=== PATIENT | male | born 1945 | race Caucasian/White ===

== ENCOUNTER 2019-04-24 10:18 | Inpatient (IN) | payer MEDICARE ==
[~2019-04-24] VITALS: Ht 177.8 cm; Wt 104.3 kg
[~2019-04-24 10:18] MED LIST: BYETTA5 MCG/0.02 SQ; DEPO-TESTO200 MG/1 M; GLIMEPIRIDE4 MG PO; METFORMIN HCL500 MG PO; METOPROLOL SUCC25 MG PO; PLAVIX75 MG PO; RAMIPRIL2.5 MG PO; SIMVASTATIN20 MG PO
[2019-04-24] MEDS ORDERED: ASPIRIN81 MG PO (10:39)
[2019-04-24 10:47] LABS: BASOPHILS % 0.2 % (0.0-1.0); EOSINOPHILS # (AUTO) 0.1 (0.0-0.4); EOSINOPHILS % 1.3 % (0.0-6.0); HEMOGLOBIN 13.7 g/dL (14.0-18.0); LYMPHOCYTES # (AUTO) 2.1 (1.0-3.2); LYMPHOCYTES % 23.5 % (18.0-39.1); MEAN CORPUSCULAR HEMOGLOBIN 33.4 pg (28-32); MEAN CORPUSCULAR HGB CONC 33.4 g/dL (31-35); MONOCYTES # (AUTO) 0.6 (0.2-0.8); MONOCYTES % 7.1 % (4.4-11.3); NEUTROPHILS % 67.6 % (38.7-80.0); PLATELET COUNT 207 x10e3/uL (140-360); RED CELL DISTRIBUTION WIDTH 12.6 % (11.7-14.4)
[2019-04-24 10:54] LABS: INR 0.87; PROTHROMBIN TIME 12.3 seconds (11.9-14.5)
[2019-04-24 10:55] LABS: PARTIAL THROMBOPLASTIN TIME 24.7 seconds (23.8-35.5)
[2019-04-24 11:03] LABS: ALANINE AMINOTRANSFERASE 17 IU/L (0-55); ALBUMIN 3.5 g/dL (3.5-5.0); ALBUMIN/GLOBULIN RATIO 1.2 (0.8-2.0); ALKALINE PHOSPHATASE 51 IU/L (40-150); BLOOD UREA NITROGEN 16 mg/dL (7-26); BUN/CREATININE RATIO 18 (6-25); CALCIUM 9.8 mg/dL (8.4-10.2); CARBON DIOXIDE 30 mmol/L (22-29); CHLORIDE 103 mmol/L (98-107); CREATINE KINASE 97 IU/L (30-200); CREATININE, SERUM 0.91 mg/dL (0.72-1.25); EST GLOMERULAR FILTRATION RATE > 60 ML/MIN (60-); GLUCOSE 118 mg/dL (74-118); LIPASE 29 U/L (8-78); SODIUM 140 mmol/L (136-145)
[2019-04-24 11:12] LABS: CLARITY,URINE CLEAR (CLEAR); COLOR,URINE YELLOW (YELLOW)
[2019-04-24 11:13] LABS: BILIRUBIN,URINE NEGATIVE (NEGATIVE); KETONES,URINE NEGATIVE (NEGATIVE); LEUKOCYTE ESTERASE ,URINE NEGATIVE (NEGATIVE); NITRITE,URINE NEGATIVE (NEGATIVE); PROTEIN,URINE DIPSTICK NEGATIVE (NEGATIVE); URINE UROBILINOGEN 0.2 mg/dL (0.2 - 1)
[2019-04-24 11:37] LABS: BACTERIA,URINE RARE /HPF; CALCIUM OXALATE CRYSTALS,UR FEW (FEW); EPITHELIAL CELLS,URINE RARE /LPF; RBC,URINE 0-5 /HPF (0-5); WBC,URINE (MAN) 0-5 /HPF (0-5)
--- NOTE | 2019-04-24 12:29 | Diagnostic Imaging Report ---
EXAM: CT Abdomen and Pelvis WITH intravenous contrast INDICATION: Abdominal pain COMPARISON: None. TECHNIQUE: Abdomen and pelvis were scanned utilizing a multidetector helical scanner from the lung base to the pubic symphysis after administration of IV contrast. Coronal and sagittal reformations were obtained. Routine protocol was performed. Scan was performed during portal venous phase. IV CONTRAST: 100mL of Isovue 370 ORAL CONTRAST: Water RADIATION DOSE: Total DLP: 654.7 mGy*cm Dose modulation, iterative reconstruction, and/or weight based adjustment of the mA/kV was utilized to reduce the radiation dose to as low as reasonably achievable. FINDINGS: LOWER THORAX: No lung base consolidation. Coronary artery atherosclerotic calcifications. HEPATOBILIARY: 1.2 cm left hepatic cyst. 1.2 cm right hepatic segment 6 hypodensity, also likely a cyst. No other focal liver lesions. No biliary ductal dilation. Unremarkable gallbladder. SPLEEN: No splenomegaly. PANCREAS: No focal masses or ductal dilatation. ADRENALS: Mild thickening of the left adrenal gland without discrete focal nodule. No right adrenal nodule. KIDNEYS/URETERS: Cluster of nonobstructive renal calculi at the right lower pole measures up to 10 mm. No hydronephrosis. No left renal calculi. PELVIC ORGANS/BLADDER: Prostatomegaly to 5.3 cm With coarse internal calcifications. PERITONEUM / RETROPERITONEUM: No free air or fluid. LYMPH NODES: No lymphadenopathy. VESSELS: Scattered atherosclerotic calcifications of the nonaneurysmal abdominal aorta and major branches. GI TRACT: Mildly dilated loops of small bowel throughout the midline and left abdomen measuring up to 3.5 cm maximum diameter with multiple air-fluid levels. No definite transition point is identified. BONES AND SOFT TISSUES: No acute osseous injury. No suspicious lytic or blastic lesions. IMPRESSION: Small bowel obstruction with loops of dilated small bowel measuring up to 3.5 cm maximum diameter. No definite transition point identified. Right lower pole nonobstructive renal calculi measure up to 10 mm. Atherosclerotic arterial calcifications including of the coronary arteries. Signed by: Fermin Robles MD on 04/24/2019 12:26 PM
--- NOTE | 2019-04-24 12:30 | Diagnostic Imaging Report ---
EXAMINATION: CHEST SINGLE (PORTABLE) INDICATION: Abdominal pain COMPARISON: None FINDINGS: LINES/TUBES:None LUNGS:The lungs are well-inflated. No focal consolidation or pulmonary edema. PLEURA:No pleural effusion or pneumothorax. MEDIASTINUM:The cardiomediastinal silhouette appears normal in size and shape. BONES/SOFT TISSUES:No acute osseous injury. ABDOMEN:No free air under the diaphragm. IMPRESSION: No focal pneumonia or pulmonary edema. Signed by: Fermin Robles MD on 04/24/2019 12:27 PM
[2019-04-24] MEDS ORDERED: MORPHINE SULFATE 2 MG/ML SYR 1ML IV PRN (12:45)
[2019-04-24] MEDS ORDERED: ONDANSETRON HCL INJ 2MG/ML 2ML 2 MG/ML VIAL IV PRN (12:45)
[2019-04-24] MEDS ORDERED: MORPHINE SULFATE INJ 4 MG/ML INJ 1ML IV PRN (13:00)
--- NOTE | 2019-04-24 13:02 | NUR ---
PATIENT TO ROOM 9
[2019-04-24] MEDS: SODIUM CHLORIDE 0.9% 1000ML 1,000 ML IV SCH (13:50)
[2019-04-24] MEDS: FAMOTIDINE 20 MG/2 ML VIAL IV SCH (13:55)
[2019-04-24] MEDS ORDERED: SODIUM CHLORIDE 0.9% 50ML 50 ML ONE (16:51)
[2019-04-24] MEDS ORDERED: IOPAMIDOL 370 MG/ML 200 ML INFUS..BTL INJ ONE (16:51)
--- NOTE | 2019-04-24 17:00 | NUR ---
Patient able to ate dinner with good appetite. Ate whole dinner serving with no complaint of abdominal pain.
[2019-04-24] MEDS: METOPROLOL SUCCINATE 25 MG TAB XL PO SCH (17:55)
[2019-04-24 20:00] VITALS: BP 136/69
--- NOTE | 2019-04-24 20:10 | NUR ---
PATIENT RECEIVED FROM ER. PATIENT RESTING IN BED, AAOX3. RESP EVEN AND UNLABORED. NO ACUTE DISTRESS NOTED. DENIES OF ANY PAIN OR DISCOMFORT AT THIS TIME. ORIENTED TO ROOM. CALL LIGHT WITHIN REACH. INSTRUCT TO CALL FOR ASSISTANCE. BED LOW/LOCKED. CONTINUE TO MONITOR CLOSELY
[2019-04-24 21:00] VITALS: BP 136/69
[2019-04-24] MEDS ORDERED: SIMVASTATIN 20 MG TAB PO SCH (21:00)
[2019-04-24 21:07] LABS: CREATINE KINASE MB 2.9 ng/mL (0-5.0)
--- NOTE | 2019-04-24 21:07 | History and Physical ---
PRIMARY CARE PHYSICIAN: Dr. Miller at [facility]. CHIEF COMPLAINT: Diffuse abdominal pain. HISTORY OF PRESENT ILLNESS: This is a 73-year-old male with past medical history of hypertension, high cholesterol, CAD, presented to the ER with complaints of abdominal pain that started last night. He reports the pain is diffuse and was constant. He denies any nausea, vomiting, diarrhea, chest pain, shortness of breath, palpitations, fever, chills. He reports having a bowel movement this morning, which was normal. So he presented to the ER for further evaluation. PAST MEDICAL HISTORY: 1. Hypertension. 2. High cholesterol. 3. CAD. PAST SURGICAL HISTORY: Appendectomy as a child and right knee surgery. FAMILY MEDICAL HISTORY: Mother is obese and had hypertension and heart problems. He does not know of his biological father medical problems. SOCIAL HISTORY: He denies any illicit drug use. He quit smoking in 2003 and drinks alcohol occasionally. ALLERGIES: NO KNOWN ALLERGIES. REVIEW OF SYSTEMS: GENERAL: Fatigue. HEENT: No head trauma. LUNGS: No shortness of breath or cough. CARDIOVASCULAR: No chest pain or palpitations. GI: Abdominal pain and bloated. NEURO: No dizziness. MUSCULOSKELETAL: Moves all extremities. SKIN: No rash. PHYSICAL EXAMINATION: VITAL SIGNS: Temperature 97.7, pulse is 54, respirations 19, blood pressure 131/70, and pulse ox 99% on room air. GENERAL: No acute distress. HEENT: Normocephalic and atraumatic. NECK: Supple and midline. LUNGS: Clear to auscultation. CARDIOVASCULAR: Regular rate and rhythm. GI: Soft and very mild tenderness. Active bowel sounds. NEUROLOGIC: Alert, awake, and oriented x3. MUSCULOSKELETAL: Moves all extremities. SKIN: Dry and intact. PSYCH: Calm. LABORATORY DATA: WBC 8.96, hemoglobin 13.7, hematocrit 41.0, and platelets 207. Sodium is 140, potassium is 4.0, carbon dioxide is 30, BUN is 16, creatinine is 0.91, and estimated GFR is greater than 60. AST 18, ALT 17, creatine kinase 97, troponin 0.012, lipase 29, and albumin 3.7. PT 12.3, INR 0.87, and APTT 24.7. Urine clear with no leukocytes or wbc's. IMAGING: Chest x-ray, no focal pneumonia or pulmonary edema. CT of the abdomen and pelvis shows small bowel obstruction with loops of dilated small bowel measuring up to 3.5 cm right lower lobe nonobstructive renal stone and arthrosclerotic arterial calcification of the coronary arteries. IMPRESSION: 1. Abdominal pain due to small bowel obstruction. CT noted. Abdominal pain is improving now, so we will start on clear liquids. Pain management as needed with morphine. We will do a KUB in the morning to see resolution. He is passing gas and had a BM this morning. 2. Hypertension. We will resume home medication. 3. High cholesterol. We will resume statin. 4. Coronary artery disease. Resume aspirin and statin. 5. Deep vein thrombosis prophylaxis. SCDs. PLAN: We will continue on clear liquids, we will repeat KUB tomorrow morning and we will discharge if KUB is unremarkable and tolerating diet. Dictated by LYNDSEY Cagle Esperanza Peterson MD MY/MODL /[id number]
[2019-04-25] VITALS: BP 130/69
[2019-04-25] MEDS: SODIUM CHLORIDE 0.9% 1000ML 1,000 ML IV SCH ×3 (00:28→12:43)
[2019-04-25 04:00] VITALS: BP 121/61
[2019-04-25 05:24] LABS: BASOPHILS % 0.2 % (0.0-1.0); EOSINOPHILS # (AUTO) 0.3 (0.0-0.4); EOSINOPHILS % 4.3 % (0.0-6.0); HEMATOCRIT 37.1 % (38.2-49.6); HEMOGLOBIN 12.4 g/dL (14.0-18.0); LYMPHOCYTES # (AUTO) 1.9 (1.0-3.2); LYMPHOCYTES % 29.8 % (18.0-39.1); MEAN CORPUSCULAR HEMOGLOBIN 33.6 pg (28-32); MEAN CORPUSCULAR HGB CONC 33.4 g/dL (31-35); MEAN CORPUSCULAR VOLUME 100.5 fL (81-99); MONOCYTES # (AUTO) 0.7 (0.2-0.8); MONOCYTES % 10.3 % (4.4-11.3); NEUTROPHILS # (AUTO) 3.6 (2.1-6.9); NEUTROPHILS % 54.9 % (38.7-80.0); PLATELET COUNT 167 x10e3/uL (140-360); RED BLOOD COUNT 3.69 x10e6/uL (4.3-5.7); RED CELL DISTRIBUTION WIDTH 12.7 % (11.7-14.4)
[2019-04-25 05:48] LABS: ANION GAP 9.3 mmol/L (8-16); BLOOD UREA NITROGEN 10 mg/dL (7-26); BUN/CREATININE RATIO 12 (6-25); CALCIUM 8.3 mg/dL (8.4-10.2); CARBON DIOXIDE 29 mmol/L (22-29); CHLORIDE 108 mmol/L (98-107); CREATININE, SERUM 0.85 mg/dL (0.72-1.25); EST GLOMERULAR FILTRATION RATE > 60 ML/MIN (60-); GLUCOSE 97 mg/dL (74-118); POTASSIUM 4.3 mmol/L (3.5-5.1); SODIUM 142 mmol/L (136-145)
[2019-04-25 06:09] LABS: CREATINE KINASE MB 1.8 ng/mL (0-5.0)
--- NOTE | 2019-04-25 07:00 | NUR ---
BEDSIDE SHIFT REPORT RECEIVED FROM THE FRIT MAKER RN. EDUCATED PT ABOUT FALL PRECAUTIONS. CALL LIGHT WITH IN EASY REACH. INSTRUCTED PT TO USE CALL LIGHT FOR ALL THE NEEDS. PT VERBALIZED UNDERSTANDING. BED IS LOW AND LOCKED. SIDE RAILS X2. PT DENIES NEEDS AT THIS TIME.
[2019-04-25 08:03] VITALS: BP 114/59
[2019-04-25 08:51] VITALS: BP 114/59
[2019-04-25] MEDS: METOPROLOL SUCCINATE 25 MG TAB XL PO SCH (09:00)
[2019-04-25] MEDS ORDERED: CLOPIDOGREL BISULFATE 75 MG TAB PO SCH (09:00)
[2019-04-25] MEDS ORDERED: RAMIPRIL 2.5 MG CAP PO SCH (09:00)
[2019-04-25] MEDS ORDERED: ASPIRIN 81 MG CHEW TAB PO SCH (09:00)
[2019-04-25] MEDS: FAMOTIDINE 20 MG/2 ML VIAL IV SCH (09:26)
--- NOTE | 2019-04-25 10:00 | NUR ---
EKG COMPLETED. PT HAS SINUS KARL WITH FIRST DEGREE BLOCK. INFORMED THE SAME TO BOSTON MORALES. HOLD METOPROLOL PER THE SHIRT IRONER SUPERVISOR.
--- NOTE | 2019-04-25 10:15 | NUR ---
PT OFF UNIT FOR KUB IN SAFE CONDITION.
--- NOTE | 2019-04-25 10:31 | NUR ---
PT BACK TO UNIT AFTER KUB
--- NOTE | 2019-04-25 10:59 | Diagnostic Imaging Report ---
EXAM: ABDOMEN-1VIEW (KUB) DATE: 04/25/2019 8:00 AM INDICATION: Small bowel obstruction COMPARISON: CT abdomen/pelvis from 04/24/2019 FINDINGS: Moderately dilated air-filled loops of small bowel identified within the upper and mid abdomen measuring up to 4.7 cm in caliber compatible patient's history of small bowel obstruction. No intraperitoneal free air is appreciated on this supine view examination. 1 cm right renal calculus identified, as noted on the prior CT examination. No other abnormal abdominal calcification is appreciated. No acute osseous abnormality identified. IMPRESSION: Dilated air-filled loops small bowel identified compatible with patient's history of small bowel obstruction. 1 cm renal calculus. Signed by: Dr. Yves Petty MD on 04/25/2019 10:55 AM
[2019-04-25 11:30] VITALS: BP 123/67
[2019-04-25 13:07] LABS: CREATINE KINASE MB 1.4 ng/mL (0-5.0)
--- NOTE | 2019-04-25 13:25 | NUR ---
PT TOLERATED THE LUNCH WELL. NO C/O PAIN. D/C PT PER BOSTON MORALES.
--- NOTE | 2019-04-25 13:30 | NUR ---
PT DISCHARGED HOME SAFELY WITH FAMILY. PT ESCORTED TO THE PRIVATE AUTO AT THE FRONT ENTRANCE. BOTH IV REMOVED. TIP INTACT. DRESSING APPLIED. PT DENIED FURTHER NEEDS.
--- NOTE | 2019-04-25 15:34 | Discharge Summary ---
PRIMARY CARE PHYSICIAN: Dr. Miller at [facility]. CHIEF COMPLAINT: Diffuse abdominal pain due to small bowel obstruction. CONSULTANTS: None. FINAL DISCHARGE DIAGNOSES: 1. Abdominal pain due to small bowel obstruction. 2. Hypertension. 3. High cholesterol. 4. Coronary artery disease. PROCEDURES: None. HISTORY: Per HPI. HOSPITAL COURSE: This is a 73-year-old male with past medical history of hypertension, high cholesterol, and CAD, presented with complaints of abdominal pain that started overnight. Upon arrival to the ER, abdominal pain was already improving some. Imaging showed CT abdomen and pelvis with contrast showed small bowel obstruction with loops of dilated small bowel measuring up to 3.5 cm and none obstructive renal stones also. He denied any dysuria, hematuria, nausea, vomiting, abdominal pain, chest pain. He was monitored on clear liquid diet overnight. KUB was done this morning, which has not improved that much. But his abdominal pain is resolved 0/10. Tolerated diet. We will discharge home on soft diet to follow up with his PCP in 1 week. PHYSICAL EXAMINATION: VITAL SIGNS: Temperature 96.1, pulse is 52, respirations 16, blood pressure is 123/67, pulse ox 96% on room air. GENERAL: No acute distress. HEENT: Normocephalic, atraumatic. NECK: Supple. LUNGS: Clear to auscultation. CARDIOVASCULAR: Regular rate and rhythm, sinus connie. GI: Soft and nontender. NEUROLOGIC: Alert, awake, and oriented x3. MUSCULOSKELETAL: Moves all extremities. SKIN: Dry. PSYCH: Calm. CONDITION AT DISCHARGE: Improved and stable. DISCHARGE MEDICATIONS: Resume home medications. FOLLOWUP: Follow up with PCP in 1 to 2 weeks. TIME SPENT: Total time of discharge is 32 minutes. Dictated by LYNDSEY Cagle Esperanza Peterson MD MY/MODL /[id number] cc: Irma Miller MD
--- OUTSIDE RECORDS SUMMARY | 2019-04-28 12:50 | XMS REPORT ---
Author Author [facility] Address Unknown Phone Unavailable Care Team Providers Care Senior Data Warehouse Developer Name Role Phone Madeline CROFT Unavailable Unavailable Problems This patient has no known problems. Allergies, Adverse Reactions, Alerts This patient has no known allergies or adverse reactions. Medications This patient has no known medications. Results Test Description Test Time Test Comments Text Results Atomic Results Result Comments ABDOMEN-1VIEW ([facility]) 2019-04-25 10:53:00 [place] [id number] Patient Name: DANNA ALICEA MR #: [id number] : 1945 Age/Sex: 73/M Req #: [id number] [facility] Physician: PHYLICIA CROFT MD Ordered by: BOSTON PETERSON CLIENT SERVICE ASSOCIATE Report #: [id number] Location: MED/SURG2 Room/Bed: [facility] Procedure: [id number] DX/ABDOMEN-1VIEW ([facility]) Exam Date: Exam Time: REPORT STATUS: Signed EXAM: ABDOMEN-1VIEW ([facility]) DATE: 04/25/2019 8:00 AM ARI CATION: Small bowel obstruction COMPARISON: CT abdomen/pelvis from 04/24/2019 FINDINGS: Moderately dilated air-filled loops of small bowel identified within the upper and mid abdomen measuring up to 4.7 cm in caliber compatible patient's history of small bowel obstruction. No intraperitoneal free air is appreciated on this supine view examination. 1 cm right renal calculus identified, as noted on the prior CT examination. No other abnormal abdominal calcification is appreciated. No acute osseous abnormality identified. IMPRESSION: Dilated air-filled loops small bowel identified compatible with patient's history of small bowel obstruction. 1 cm renal calculus. Signed by: Dr. Yves Petty MD on 04/25/2019 10:55 AM Dictated By: YVES PETTY MD 1055 Transcribed By: WANG on 04/25/19 1055 COPY TO: BOSTON PETERSON NP CHEST SINGLE (PORTABLE) 2019-04-24 12:26:00 [place] [address] Patient Name: DANNA ALICEA MR #: [id number] : 1945 Age/Sex: 73/M Req #: [id number] Adm Physician: Ordered by: WILNER MACIAS CLIENT SERVICE ASSOCIATE Report #: [id number] Location: ER Room/Bed: Procedure: [id number] DX/CHEST SINGLE (PORTABLE) Exam Date: 04/24/19 Exam Time: 1150 REPORT STATUS: Signed EXAMINATION: CHEST SINGLE (PORTABLE) INDIC ATION: Abdominal pain COMPARISON: None FINDINGS: LINES/TUBES:None LUNGS:The lungs are well-inflated. No focal consolidation or pulmonary edema. PLEURA:No pleural effusion or pneumothorax. MEDIASTINUM:The cardiomediastinal silhouette appears normal in size and shape. BONES/SOFT TISSUES:No acute osseous injury. ABDOMEN:No free air under the diaphragm. IMPRESSION: No focal pneumonia or pulmonary edema. Signed by: Adri Small MD on 04/24/2019 12:27 PM Dictated By: ADRI SMALL MD 1227 Transcribed By: WANG on 04/24/197 COPY TO: WILNER MACIAS NP CT ABDOMEN/PELVIS W 2019-04-24 12:17:00 [facility] [address] [address] Patient Name: DANNA ALICEA MR #: [id number] : 1945 Age/Sex: 73/M Req #: [id number] Adm Physician: Ordered by: WILNER MACIAS NP Report #: [id number] Location: ER Room/Bed: Procedure: [id number] CT/CT ABDOMEN/PELVIS W Exam Date: 04/24/19 Exam Time: 1132 REPORT STATUS: Signed EXAM: CT Abdomen and Pelvis WITH intravenous contrast INDICATION: Abdominal pain COMPARISON: None. TECHNIQUE: Abdomen and pelvis were scanned utilizing a multidetector helical scanner from the lung base to the pubic symphysis after administration of IV contrast. Coronal and sagittal reformations were obtained. Routine protocol was performed. Scan was performed during portal venous phase. IV CONTRAST: 100mL of Isovue 370 ORAL CONTRAST: Water RADIATION DOSE: Total DLP: 654.7 mGy*cm Dose modulation, iterative reconstruction, and/or weight based adjustment of the mA/kV was utilized to reduce the radiation dose to as low as reasonably achievable. FINDINGS: LOWER THORAX: No lung base consolidation. Coronary artery atherosclerotic calcifications. HEPATOBILIARY: 1.2 cm left hepatic cyst. 1.2 cm right hepatic segment 6 hypodensity, also likely a cyst. No other focal liver lesions. No biliary ductal dilation. Unremarkable gallbladder. SPLEEN: No splenomegaly. PANCREAS: No focal masses or ductal dilatation. ADRENALS: Mild thickening of the left adrenal gland without discrete focal nodule. No right adrenal nodule. KIDNEYS/URETERS: Cluster of nonobstructive renal calculi at the right lower pole measures up to 10 mm. No hydronephrosis. No left renal calculi. PELVIC ORGANS/BLADDER: Prostatomegaly to 5.3 cm With coarse internal calcifications. PERITONEUM / RETROPERITONEUM: No free air or fluid. LYMPH NODES: No lymphadenopathy. VESSELS: Scattered atherosclerotic calcifications of the nonaneurysmal abdominal aorta and major branches. GI TRACT: Mildly dilated loops of small bowel throughout the midline and left abdomen measuring up to 3.5 cm maximum diameter with multiple air-fluid levels. No definite transition point is identified. BONES AND SOFT TISSUES: No acute osseous injury. No suspicious lytic or blastic lesions. IMPRESSION: Small bowel obstruction with loops of dilated small bowel measuring up to 3.5 cm maximum diameter. No definite transition point identified. Right lower pole nonobstructive renal calculi measure up to 10 mm. Atherosclerotic arterial calcifications including of the coronary arteries. Signed by: Adri Small MD on 04/24/2019 12:26 PM Dictated By: ADRI SMALL MD 1226 Transcribed By: WANG on 04/24/19 1226 COPY TO: WILNER LORD NP
== END 2019-04-25 13:41 | disposition home or self-care (01) | DRG 390 ==
LOC: ER 10:18 → ERHOLD 12:43 → MED/SURG2 20:00
PROVIDERS: ADMIT Internal Medicine; ATTEND Internal Medicine
DX: K56.609 Unspecified intestinal obstruction, unspecified as to partial versus complete obstruction (principal); I25.10 Atherosclerotic heart disease of native coronary artery without angina pectoris; E78.00 Pure hypercholesterolemia, unspecified; I10 Essential (primary) hypertension
CPT/HCPCS: 36415; 71045; 74018; 74177; 80048; 80053; 81001; 82550; 82553; 82948; 83690; 84484; 85025; 85610; 85730; 93005; 99284; J7030; Q9967

== ENCOUNTER 2019-06-13 06:17 | Emergency (ER) | payer MEDICARE ==
[~2019-06-13] VITALS: Ht 177.8 cm; Wt 104.3 kg
[~2019-06-13 06:17] MED LIST changes: +ASPIRIN81 MG PO
[2019-06-13] MEDS ORDERED: ASPIRIN 81 MG CHEW TAB PO ONE (07:00)
[2019-06-13 07:22] LABS: HEMOGLOBIN 13.8 g/dL (14.0-18.0); RED BLOOD COUNT 4.07 x10e6/uL (4.3-5.7)
[2019-06-13 07:23] LABS: BASOPHILS % 0.3 % (0.0-1.0); EOSINOPHILS % 2.6 % (0.0-6.0); HEMATOCRIT 40.8 % (38.2-49.6); LYMPHOCYTES % 26.1 % (18.0-39.1); MEAN CORPUSCULAR HEMOGLOBIN 33.9 pg (28-32); MEAN CORPUSCULAR HGB CONC 33.7 g/dL (31-35); MEAN CORPUSCULAR VOLUME 100.5 fL (81-99); MONOCYTES % 10.4 % (4.4-11.3); NEUTROPHILS % 60.2 % (38.7-80.0); PLATELET COUNT 230 x10e3/uL (140-360); RED CELL DISTRIBUTION WIDTH 13.4 % (11.7-14.4)
--- NOTE | 2019-06-13 07:26 | Diagnostic Imaging Report ---
EXAMINATION: CHEST SINGLE (NOT PORTABLE) INDICATION: Chest pain. COMPARISON: 04/24/2019. FINDINGS: TUBES and LINES: None. LUNGS: Mild bibasilar subsegmental atelectasis. There is no evidence of pneumonia or pulmonary edema. PLEURA: No pleural effusion or pneumothorax. HEART AND MEDIASTINUM: The cardiomediastinal silhouette is unremarkable. BONES AND SOFT TISSUES: No acute osseous lesion. Soft tissues are unremarkable. UPPER ABDOMEN: No free air under the diaphragm. IMPRESSION: No acute thoracic abnormality. Signed by: Dr. Óscar Grove M.D. on 06/13/2019 7:24 AM
[2019-06-13 07:36] LABS: BILIRUBIN,URINE NEGATIVE (NEGATIVE); CLARITY,URINE CLEAR (CLEAR); COLOR,URINE YELLOW (YELLOW); KETONES,URINE NEGATIVE (NEGATIVE); LEUKOCYTE ESTERASE ,URINE NEGATIVE (NEGATIVE); NITRITE,URINE NEGATIVE (NEGATIVE); PROTEIN,URINE DIPSTICK NEGATIVE (NEGATIVE); URINE UROBILINOGEN 0.2 mg/dL (0.2 - 1)
[2019-06-13 07:41] LABS: BACTERIA,URINE FEW /HPF; EPITHELIAL CELLS,URINE MODERATE /LPF; RBC,URINE 0-5 /HPF (0-5)
[2019-06-13] MEDS ORDERED: METOPROLOL TARTRATE 25 MG TAB PO NR (08:00)
[2019-06-13 08:12] LABS: BLOOD UREA NITROGEN 16 mg/dL (7-26); BUN/CREATININE RATIO 15 (6-25); CARBON DIOXIDE 26 mmol/L (22-29); CHLORIDE 104 mmol/L (98-107); CREATININE, SERUM 1.09 mg/dL (0.72-1.25); EST GLOMERULAR FILTRATION RATE > 60 ML/MIN (60-); GLUCOSE 169 mg/dL (74-118); SODIUM 142 mmol/L (136-145)
[2019-06-13 08:13] LABS: ALANINE AMINOTRANSFERASE 22 IU/L (0-55); ALBUMIN 3.9 g/dL (3.5-5.0); ALBUMIN/GLOBULIN RATIO 1.3 (0.8-2.0); ALKALINE PHOSPHATASE 58 IU/L (40-150); CALCIUM 9.6 mg/dL (8.4-10.2); CREATINE KINASE 110 IU/L (30-200)
[2019-06-13 08:56] LABS: INR 0.82; PARTIAL THROMBOPLASTIN TIME 25.9 seconds (23.8-35.5); PROTHROMBIN TIME 11.4 seconds (11.9-14.5)
[2019-06-13 09:13] LABS: EOSINOPHILS # (AUTO) 0.2 (0.0-0.4); LYMPHOCYTES # (AUTO) 1.9 (1.0-3.2); MONOCYTES # (AUTO) 0.8 (0.2-0.8); NEUTROPHILS # (AUTO) 4.3 (2.1-6.9)
[2019-06-13] MEDS ORDERED: POTASSIUM CHLORIDE 20 MEQ TAB CR PO ONE (10:07)
[2019-06-13] MEDS ORDERED: POTASSIUM CHLORIDE 20 MEQ TAB CR PO NR (10:15)
== END 2019-06-13 10:06 | disposition home or self-care (01) ==
LOC: ER 06:17
DX: R00.0 Tachycardia, unspecified (principal); E87.6 Hypokalemia; R60.9 Edema, unspecified; I10 Essential (primary) hypertension; I25.10 Atherosclerotic heart disease of native coronary artery without angina pectoris; I50.9 Heart failure, unspecified; E78.5 Hyperlipidemia, unspecified; I25.2 Old myocardial infarction
CPT/HCPCS: 36415; 71045; 80053; 81001; 82550; 82553; 83880; 84484; 85025; 85610; 85730; 93005; 99284

== ENCOUNTER 2019-09-07 12:49 | Observation (INO) | payer MEDICARE ==
[~2019-09-07] VITALS: Ht 177.8 cm; Wt 95.9 kg
[2019-09-07 13:17] LABS: BASOPHILS % 0.5 % (0.0-1.0); EOSINOPHILS # (AUTO) 0.2 (0.0-0.4); EOSINOPHILS % 3.3 % (0.0-6.0); HEMATOCRIT 41.3 % (38.2-49.6); HEMOGLOBIN 13.9 g/dL (14.0-18.0); LYMPHOCYTES % 32.5 % (18.0-39.1); MEAN CORPUSCULAR HEMOGLOBIN 34.3 pg (28-32); MEAN CORPUSCULAR HGB CONC 33.7 g/dL (31-35); MONOCYTES # (AUTO) 0.6 (0.2-0.8); MONOCYTES % 9.9 % (4.4-11.3); NEUTROPHILS # (AUTO) 3.3 (2.1-6.9); NEUTROPHILS % 53.2 % (38.7-80.0); PLATELET COUNT 218 x10e3/uL (140-360); RED BLOOD COUNT 4.05 x10e6/uL (4.3-5.7); RED CELL DISTRIBUTION WIDTH 13.2 % (11.7-14.4)
[2019-09-07 13:36] LABS: ALANINE AMINOTRANSFERASE 14 IU/L (0-55); ALBUMIN 3.8 g/dL (3.5-5.0); ALBUMIN/GLOBULIN RATIO 1.2 (0.8-2.0); ALKALINE PHOSPHATASE 51 IU/L (40-150); BLOOD UREA NITROGEN 15 mg/dL (7-26); BUN/CREATININE RATIO 18 (6-25); CALCIUM 9.3 mg/dL (8.4-10.2); CARBON DIOXIDE 29 mmol/L (22-29); CHLORIDE 105 mmol/L (98-107); CREATINE KINASE 82 IU/L (30-200); CREATININE, SERUM 0.84 mg/dL (0.72-1.25); EST GLOMERULAR FILTRATION RATE > 60 ML/MIN (60-); GLUCOSE 123 mg/dL (74-118); SODIUM 141 mmol/L (136-145)
--- NOTE | 2019-09-07 15:42 | Diagnostic Imaging Report ---
X-ray chest AP portable Comparison: 06/13/2019 History: Muscle pain Findings: Cardiomediastinal silhouette and central airways unremarkable except for a prominent aorta. No pleural effusion. No pneumothorax. Lung finley are unremarkable. Visualized skeleton, but abdomen and extrathoracic soft tissues unremarkable. Impression: No acute disease seen on this exam. Signed by: Brodie Vyas MD on 09/07/2019 3:39 PM
[2019-09-07] MEDS ORDERED: ASPIRIN 81 MG CHEW TAB PO ONE (16:15)
--- NOTE | 2019-09-07 18:00 | NUR ---
pt alert resp even and unlabored at this time no distress noted pt able to make needs known, pt was oriented to room and call light, bed in lowest position, bed rails up x2, pt dressing to back clean and intact no c/pain at this time.
[2019-09-07 20:00] VITALS: BP 131/73
--- NOTE | 2019-09-07 20:25 | NUR ---
PATIENT IS AOX4, NO SIGNS OF OF RESPIRATORY DISTRESS NOTED. PATIENT VOICES NO CHEST PAIN AT THIS TIME. BED IS IN LOWEST POSITION, BOTH SIDE RAILS ARE UP, CALL LIGHT IS WITHIN EASY REACH, WILL CONTINUE TO MONITOR.
[2019-09-07 20:30] VITALS: BP 131/73
[2019-09-08] VITALS: BP 129/71
[2019-09-08 01:30] VITALS: BP 131/73
[2019-09-08] MEDS ORDERED: FINASTERIDE5 MG PO (02:02)
[2019-09-08] MEDS ORDERED: MULTIVITAMINS1 EAC6 PO (02:02)
[2019-09-08] MEDS ORDERED: FLOMAX0.4 MG PO (02:02)
[2019-09-08 04:00] VITALS: BP 133/61
[2019-09-08 05:55] LABS: BASOPHILS % 0.3 % (0.0-1.0); EOSINOPHILS # (AUTO) 0.2 (0.0-0.4); EOSINOPHILS % 3.1 % (0.0-6.0); HEMOGLOBIN 12.8 g/dL (14.0-18.0); LYMPHOCYTES % 32.5 % (18.0-39.1); MEAN CORPUSCULAR HGB CONC 33.7 g/dL (31-35); MEAN CORPUSCULAR VOLUME 101.1 fL (81-99); MONOCYTES # (AUTO) 0.7 (0.2-0.8); MONOCYTES % 10.6 % (4.4-11.3); NEUTROPHILS # (AUTO) 3.3 (2.1-6.9); NEUTROPHILS % 53.3 % (38.7-80.0); PLATELET COUNT 199 x10e3/uL (140-360); RED BLOOD COUNT 3.76 x10e6/uL (4.3-5.7); RED CELL DISTRIBUTION WIDTH 12.9 % (11.7-14.4)
--- NOTE | 2019-09-08 07:05 | NUR ---
BEDSIDE SHIFT REPORT RECEIVED FROM PM NURSE, PT AWAKE, ALERT, AMBULATING TO BATHROOM WITHOUT DIFFICULTY, NO SIGNS OF DISTRESS. WILL CONTINUE TO MONITOR.
[2019-09-08 07:36] LABS: CREATINE KINASE 74 IU/L (30-200)
[2019-09-08 08:00] VITALS: BP 137/69
[2019-09-08 08:29] VITALS: BP 133/61
--- NOTE | 2019-09-08 08:35 | NUR ---
spoke with ANDREW Hernandez for Dr. Byrne and informed him of consult.
--- NOTE | 2019-09-08 11:39 | Discharge Summary ---
PRIMARY CARE DOCTOR: Dr. Maricarmen Reynolds. FINAL DIAGNOSIS: Atypical chest pain. No evidence of acute myocardial infarction. SECONDARY DIAGNOSES: 1. Coronary artery disease with distant stent placement. 2. Hypertension. CONSULTANTS: Dr. Byrne. PROCEDURES/STUDIES PERFORMED: None. HISTORY: Per H and P. HOSPITAL COURSE: The patient's history is very atypical, in fact he was more concerned about getting a COVID-19 test done. The patient's repeat troponins are negative, therefore no acute myocardial infarction. I have suggested for him to follow up with his [facility] security patrol officer to see if he still needs to take Plavix in addition to aspirin. Currently, the patient is stable for going home, which he is waiting for Dr. Byrne be to see him. CONDITION ON DISCHARGE: Stable. DISCHARGE MEDICATIONS: Please see medication reconciliation form. Yiching MD CLOVER Aguirre/GILES /[id number]
[2019-09-08 11:52] VITALS: BP 141/77
--- NOTE | 2019-09-08 12:55 | NUR ---
DR FREED SAW PT AT BEDSIDE; STATES PT IS CLEAR FOR DISCHARGE. WILL HAVE PT FOLLOW UP WITH HIM IN 3 WEEKS.
[2019-09-08] MEDS ORDERED: METOPROLOL SUCCINATE 25 MG TAB XL PO SCH (17:00)
--- NOTE | 2019-09-08 20:31 | Consultation ---
DATE OF CONSULTATION: REASON FOR CONSULTATION: Chest pain, concern for COVID-19. HISTORY OF PRESENT ILLNESS: The patient is a very pleasant 74-year-old white gentleman with history of hypertension. Yesterday while he was sitting, he started to have chest pain, which was getting progressively worse if he took a deep breath or if he moved his upper part of the chest. He was watching something on TV and [employer] saying that muscle pain could be positive for COVID, so he became concerned. There was no fever, no chills, no cough. He came to emergency room. In the emergency room, chest x-ray was negative. He was evaluated, is being admitted. PAST MEDICAL HISTORY: Hypertension. PAST SURGICAL HISTORY: Denies. ALLERGIES: NKA. SOCIAL HISTORY: Negative. REVIEW OF SYSTEMS: At present time; HEENT: Negative. PULMONARY: Negative. CARDIAC: Negative. : Negative. GI: Negative. MUSCULOSKELETAL: Pain is negative. LABORATORY DATA: White count 6.12, hemoglobin 12.18, hematocrit of 38. His sodium 141, potassium 4.1, creatinine 0.84. Chest x-ray was negative. There was no fever since admission. PHYSICAL EXAMINATION: GENERAL: He is currently alert, oriented, does not seem to be in acute distress. VITAL SIGNS: Stable, currently afebrile. HEENT: He is not icteric. NECK: Supple. CHEST: Clear. HEART: S1, S2. No S3, S4, or murmur. ABDOMEN: Soft. Positive bowel sounds. EXTREMITIES: No edema. SKIN: No rash. IMPRESSION: Muscular pain, maybe pleurisy. Clinically, seems to be stable. There is no need to worry about coronavirus disease 2019 at the present time. I gave him my business card to see me back in 3 weeks. Should he have fever or cough or any of symptoms, to call me. Further recommendations follow. MD WINDY Baugh/GILES /[id number]
[2019-09-08] MEDS ORDERED: SIMVASTATIN 20 MG TAB PO SCH (21:00)
[2019-09-08] MEDS ORDERED: TAMSULOSIN HCL 0.4 MG CAP PO SCH (21:00)
[2019-09-09] MEDS ORDERED: CLOPIDOGREL BISULFATE 75 MG TAB PO SCH (09:00)
[2019-09-09] MEDS ORDERED: MULTIVITAMINS/MINERALS TAB PO SCH (09:00)
[2019-09-09] MEDS ORDERED: FINASTERIDE 5 MG TAB PO SCH (09:00)
[2019-09-09] MEDS ORDERED: RAMIPRIL 2.5 MG CAP PO SCH (09:00)
[2019-09-09] MEDS ORDERED: ASPIRIN 81 MG CHEW TAB PO SCH (09:00)
== END 2019-09-08 13:40 | disposition home or self-care (01) ==
LOC: ER 12:49 → ERHOLD 16:07 → MED/SURG 17:32
PROVIDERS: ADMIT Internal Medicine; ATTEND Internal Medicine
DX: R07.89 Other chest pain (principal); I10 Essential (primary) hypertension; I25.10 Atherosclerotic heart disease of native coronary artery without angina pectoris; Z95.5 Presence of coronary angioplasty implant and graft
CPT/HCPCS: 36415 ×2; 71045; 80053; 82550 ×2; 82553 ×2; 84484 ×2; 85025 ×2; 93005; 99284; G0378 ×2

== ENCOUNTER 2020-03-10 13:47 | Emergency (ER) | payer MEDICARE ==
[~2020-03-10] VITALS: Ht 177.8 cm; Wt 95.7 kg
[~2020-03-10 13:47] MED LIST changes: +FINASTERIDE5 MG PO; +FLOMAX0.4 MG PO; +MULTIVITAMINS1 EAC6 PO
[2020-03-10] MEDS ORDERED: SODIUM CHLORIDE 0.9% 1000ML 1,000 ML IV STA (14:08)
[2020-03-10 14:38] LABS: BASOPHILS % 0.3 % (0.0-1.0); EOSINOPHILS # (AUTO) 0.1 (0.0-0.4); EOSINOPHILS % 1.9 % (0.0-6.0); HEMATOCRIT 40.7 % (38.2-49.6); HEMOGLOBIN 13.5 g/dL (14.0-18.0); LYMPHOCYTES # (AUTO) 1.7 (1.0-3.2); MEAN CORPUSCULAR HEMOGLOBIN 33.9 pg (28-32); MEAN CORPUSCULAR HGB CONC 33.2 g/dL (31-35); MEAN CORPUSCULAR VOLUME 102.3 fL (81-99); MONOCYTES # (AUTO) 0.6 (0.2-0.8); MONOCYTES % 9.9 % (4.4-11.3); NEUTROPHILS # (AUTO) 3.4 (2.1-6.9); NEUTROPHILS % 58.6 % (38.7-80.0); PLATELET COUNT 212 x10e3/uL (140-360); RED BLOOD COUNT 3.98 x10e6/uL (4.3-5.7); RED CELL DISTRIBUTION WIDTH 12.9 % (11.7-14.4)
[2020-03-10 14:50] LABS: INR 0.94; PROTHROMBIN TIME 13.1 seconds (11.9-14.5)
[2020-03-10 14:51] LABS: PARTIAL THROMBOPLASTIN TIME 24.1 seconds (23.8-35.5)
[2020-03-10 14:55] LABS: ALANINE AMINOTRANSFERASE 19 IU/L (0-55); ALBUMIN 3.9 g/dL (3.5-5.0); ALBUMIN/GLOBULIN RATIO 1.3 (0.8-2.0); ALKALINE PHOSPHATASE 45 IU/L (40-150); BLOOD UREA NITROGEN 15 mg/dL (7-26); BUN/CREATININE RATIO 15 (6-25); CALCIUM 8.9 mg/dL (8.4-10.2); CARBON DIOXIDE 27 mmol/L (22-29); CHLORIDE 106 mmol/L (98-107); CLARITY,URINE CLOUDY (CLEAR); COLOR,URINE YELLOW (YELLOW); CREATININE, SERUM 0.97 mg/dL (0.72-1.25); EST GLOMERULAR FILTRATION RATE > 60 ML/MIN (60-); GLUCOSE 123 mg/dL (74-118); LEUKOCYTE ESTERASE ,URINE NEGATIVE (NEGATIVE); NITRITE,URINE NEGATIVE (NEGATIVE); SODIUM 140 mmol/L (136-145)
[2020-03-10 14:56] LABS: BILIRUBIN,URINE NEGATIVE (NEGATIVE); KETONES,URINE NEGATIVE (NEGATIVE); PROTEIN,URINE DIPSTICK NEGATIVE (NEGATIVE); URINE UROBILINOGEN 0.2 mg/dL (0.2 - 1)
[2020-03-10 15:12] LABS: BACTERIA,URINE MANY /HPF; CALCIUM OXALATE CRYSTALS,UR MANY (FEW); EPITHELIAL CELLS,URINE FEW /LPF; MUCUS,URINE MANY (RARE); RBC,URINE 21-50 /HPF (0-5); WBC,URINE (MAN) 21-50 /HPF (0-5)
[2020-03-10] MEDS ORDERED: CEFTRIAXONE SOD 1 GM/NS 50 ML 50 ML IV ONE (15:45)
== END 2020-03-10 18:05 | disposition home or self-care (01) ==
LOC: ER 14:11
DX: M54.5 Low back pain (principal); Z87.442 Personal history of urinary calculi; I10 Essential (primary) hypertension; E78.5 Hyperlipidemia, unspecified; I25.2 Old myocardial infarction; Z95.5 Presence of coronary angioplasty implant and graft
CPT/HCPCS: 36415; 74176; 80053; 81001; 85025; 85610; 85730; 87086; 87186; 99284; J0696; J7030

== ENCOUNTER 2020-06-04 17:22 | Emergency (ER) | payer MEDICARE ==
[~2020-06-04] VITALS: Ht 177.8 cm; Wt 95.7 kg
== END 2020-06-04 20:53 | disposition home or self-care (01) ==
LOC: ER 18:12
DX: H54.62 Unqualified visual loss, left eye, normal vision right eye (principal); Z11.52 Encounter for screening for COVID-19; I10 Essential (primary) hypertension; E78.5 Hyperlipidemia, unspecified; I25.2 Old myocardial infarction
CPT/HCPCS: 99282; U0002

== ENCOUNTER 2021-06-23 12:24 | Emergency (ER) | payer MEDICARE ==
[~2021-06-23] VITALS: Ht 177.8 cm; Wt 95.7 kg
[2021-06-23 13:59] LABS: BASOPHILS % 0.5 % (0.0-1.0); EOSINOPHILS # (AUTO) 0.1 (0.0-0.4); EOSINOPHILS % 1.9 % (0.0-6.0); HEMATOCRIT 43.7 % (38.2-49.6); HEMOGLOBIN 14.3 g/dL (14.0-18.0); LYMPHOCYTES # (AUTO) 1.6 (1.0-3.2); LYMPHOCYTES % 24.8 % (18.0-39.1); MEAN CORPUSCULAR HGB CONC 32.7 g/dL (31-35); MEAN CORPUSCULAR VOLUME 103.8 fL (81-99); MONOCYTES # (AUTO) 0.7 (0.2-0.8); MONOCYTES % 10.7 % (4.4-11.3); NEUTROPHILS # (AUTO) 3.9 (2.1-6.9); NEUTROPHILS % 61.6 % (38.7-80.0); PLATELET COUNT 210 x10e3/uL (140-360); RED BLOOD COUNT 4.21 x10e6/uL (4.3-5.7); RED CELL DISTRIBUTION WIDTH 13.2 % (11.7-14.4)
[2021-06-23 14:12] LABS: INR 0.89; PROTHROMBIN TIME 12.7 seconds (11.9-14.5)
[2021-06-23 14:21] LABS: ALBUMIN 3.8 g/dL (3.5-5.0); ALBUMIN/GLOBULIN RATIO 1.1 (0.8-2.0); CALCIUM 9.1 mg/dL (8.4-10.2); CREATININE, SERUM 1.17 mg/dL (0.72-1.25)
[2021-06-23] MEDS ORDERED: SODIUM CHLORIDE 0.9% 50ML 50 ML ONE (14:43)
[2021-06-23] MEDS ORDERED: IOPAMIDOL 370 MG/ML 200 ML INFUS..BTL INJ ONE (14:43)
== END 2021-06-23 19:08 | disposition home or self-care (01) ==
LOC: ER 12:28
DX: K62.5 Hemorrhage of anus and rectum (principal); K57.30 Diverticulosis of large intestine without perforation or abscess without bleeding; N20.0 Calculus of kidney
CPT/HCPCS: 36415; 74177; 80053; 85025; 85610; 86850; 86900; 99284; Q9967

== ENCOUNTER 2021-09-02 10:43 | Emergency (ER) | payer MEDICARE ==
[~2021-09-02] VITALS: Ht 177.8 cm; Wt 95.7 kg
[2021-09-02 11:11] LABS: BASOPHILS % 0.1 % (0.0-1.0); HEMATOCRIT 36.7 % (38.2-49.6); HEMOGLOBIN 12.5 g/dL (14.0-18.0); LYMPHOCYTES # (AUTO) 0.4 (1.0-3.2); LYMPHOCYTES % 3.1 % (18.0-39.1); MEAN CORPUSCULAR HEMOGLOBIN 34.3 pg (28-32); MEAN CORPUSCULAR HGB CONC 34.1 g/dL (31-35); MEAN CORPUSCULAR VOLUME 100.8 fL (81-99); MONOCYTES # (AUTO) 1.6 (0.2-0.8); MONOCYTES % 11.6 % (4.4-11.3); NEUTROPHILS # (AUTO) 11.9 (2.1-6.9); NEUTROPHILS % 84.6 % (38.7-80.0); PLATELET COUNT 171 x10e3/uL (140-360); RED BLOOD COUNT 3.64 x10e6/uL (4.3-5.7); RED CELL DISTRIBUTION WIDTH 12.9 % (11.7-14.4)
[2021-09-02 11:45] LABS: ALBUMIN 2.9 g/dL (3.5-5.0); ALBUMIN/GLOBULIN RATIO 0.7 (0.8-2.0); ANION GAP 13.2 mmol/L (8-16); CALCIUM 8.5 mg/dL (8.4-10.2); CREATININE, SERUM 1.12 mg/dL (0.72-1.25); POTASSIUM 3.2 mmol/L (3.5-5.1)
[2021-09-02 12:07] LABS: CLARITY,URINE CLEAR (CLEAR); COLOR,URINE YELLOW (YELLOW); LEUKOCYTE ESTERASE ,URINE NEGATIVE (NEGATIVE); NITRITE,URINE NEGATIVE (NEGATIVE)
[2021-09-02 12:08] LABS: KETONES,URINE 2+ (NEGATIVE); PROTEIN,URINE DIPSTICK 2+ (NEGATIVE); URINE UROBILINOGEN 0.2 mg/dL (0.2 - 1)
[2021-09-02 12:19] LABS: BACTERIA,URINE MODERATE /HPF; EPITHELIAL CELLS,URINE MODERATE /LPF
[2021-09-02 12:21] LABS: MUCUS,URINE MODERATE (RARE)
[2021-09-02] MEDS ORDERED: CEPHALEXIN500 MG PO (13:34)
[2021-09-02 14:04] VITALS: BP 151/80
== END 2021-09-02 14:07 | disposition home or self-care (01) ==
LOC: ER 10:46
DX: A41.9 Sepsis, unspecified organism (principal); N39.0 Urinary tract infection, site not specified; I10 Essential (primary) hypertension; E78.5 Hyperlipidemia, unspecified; Z20.822 Contact with and (suspected) exposure to COVID-19; I25.2 Old myocardial infarction; Z95.5 Presence of coronary angioplasty implant and graft
CPT/HCPCS: 36415; 70450; 71045; 80053; 81001; 83605; 83880; 84484; 85025; 87040; 93005; 99284; J0696; U0002

== ENCOUNTER 2022-05-10 07:01 | Inpatient (IN) | payer MEDICARE ==
[~2022-05-10] VITALS: Ht 177.8 cm; Wt 94.9 kg
[~2022-05-10 07:01] MED LIST changes: +CEPHALEXIN500 MG PO
[2022-05-10 07:50] LABS: BASOPHILS % 0.2 % (0.0-1.0); EOSINOPHILS # (AUTO) 0.1 (0.0-0.4); EOSINOPHILS % 1.4 % (0.0-6.0); HEMATOCRIT 40.9 % (38.2-49.6); HEMOGLOBIN 12.3 g/dL (14.0-18.0); LYMPHOCYTES # (AUTO) 0.9 (1.0-3.2); LYMPHOCYTES % 16.2 % (18.0-39.1); MEAN CORPUSCULAR HEMOGLOBIN 32.9 pg (28-32); MEAN CORPUSCULAR HGB CONC 30.1 g/dL (31-35); MEAN CORPUSCULAR VOLUME 109.4 fL (81-99); MONOCYTES # (AUTO) 0.7 (0.2-0.8); MONOCYTES % 11.4 % (4.4-11.3); NEUTROPHILS # (AUTO) 4.1 (2.1-6.9); NEUTROPHILS % 70.5 % (38.7-80.0); PLATELET COUNT 165 x10e3/uL (140-360); RED BLOOD COUNT 3.74 x10e6/uL (4.3-5.7); RED CELL DISTRIBUTION WIDTH 12.9 % (11.7-14.4)
[2022-05-10 07:57] LABS: PARTIAL THROMBOPLASTIN TIME 32.1 seconds (23.8-35.5); PROTHROMBIN TIME 13.4 seconds (11.9-14.5)
[2022-05-10 08:04] LABS: ALBUMIN 3.4 g/dL (3.5-5.0); ANION GAP 14.8 mmol/L (8-16); CALCIUM 8.6 mg/dL (8.4-10.2); CREATININE, SERUM 0.94 mg/dL (0.72-1.25); POTASSIUM 3.8 mmol/L (3.5-5.1)
[2022-05-10 08:11] LABS: CREATINE KINASE MB 1.4 ng/mL (0-5.0)
[2022-05-10 08:15] LABS: B-TYPE NATRIURETIC PEPTIDE2 96.3 pg/mL (0-100)
[2022-05-10] MEDS ORDERED: METHYLPREDNISOLONE SOD SUCC 125 MG/2ML VIAL IV ONE (08:15)
[2022-05-10] MEDS ORDERED: ALBUTEROL/IPRATROPIUM 3 ML NEB NEB ONE ×3 (08:15)
[2022-05-10 08:38] LABS: CLARITY,URINE CLOUDY (CLEAR); COLOR,URINE YELLOW (YELLOW); KETONES,URINE NEGATIVE (NEGATIVE); LEUKOCYTE ESTERASE ,URINE NEGATIVE (NEGATIVE); NITRITE,URINE NEGATIVE (NEGATIVE); PROTEIN,URINE DIPSTICK 2+ (NEGATIVE); URINE UROBILINOGEN 0.2 mg/dL (0.2 - 1)
[2022-05-10 08:58] LABS: BACTERIA,URINE FEW /HPF; EPITHELIAL CELLS,URINE RARE /LPF; WBC,URINE (MAN) 0-5 /HPF (0-5)
[2022-05-10] MEDS ORDERED: SODIUM CHLORIDE 0.9% 1000ML 1,000 ML IV SCH (10:15)
[2022-05-10] MEDS ORDERED: DEXTROSE 50% SYRINGE 50 ML IV PRN (10:30)
[2022-05-10] MEDS ORDERED: ONDANSETRON HCL INJ 2MG/ML 2ML 2 MG/ML VIAL IV PRN (10:30)
[2022-05-10] MEDS: SODIUM CHLORIDE 0.9% 1000ML 1,000 ML IV SCH ×2 (10:34→23:38)
[2022-05-10] MEDS: INSULIN REGULAR, HUMAN 100 UNIT/1 ML SQ SCH ×3 (11:30→21:20)
[2022-05-10 11:38] VITALS: BP 144/66
[2022-05-10 15:21] VITALS: BP 154/76
[2022-05-10 15:30] VITALS: BP 154/76
[2022-05-10 18:28] VITALS: BP 154/76
[2022-05-10] MEDS: ALBUTEROL/IPRATROPIUM 3 ML NEB NEB PRN (19:10)
[2022-05-10 19:15] VITALS: BP 141/71
[2022-05-10 20:00] VITALS: BP 141/71
[2022-05-10] MEDS: TAMSULOSIN HCL 0.4 MG CAP PO SCH (21:12)
[2022-05-10] MEDS: SIMVASTATIN 20 MG TAB PO SCH (21:12)
[2022-05-11] VITALS (7 sets, daily range): BP systolic 129–166; BP diastolic 65–84
[2022-05-11 06:10] LABS: BASOPHILS % 0.2 % (0.0-1.0); EOSINOPHILS % 0.2 % (0.0-6.0); HEMATOCRIT 37.1 % (38.2-49.6); LYMPHOCYTES # (AUTO) 0.8 (1.0-3.2); LYMPHOCYTES % 12.5 % (18.0-39.1); MEAN CORPUSCULAR HEMOGLOBIN 33.9 pg (28-32); MEAN CORPUSCULAR HGB CONC 32.3 g/dL (31-35); MEAN CORPUSCULAR VOLUME 104.8 fL (81-99); MONOCYTES # (AUTO) 0.6 (0.2-0.8); MONOCYTES % 9.3 % (4.4-11.3); NEUTROPHILS % 77.2 % (38.7-80.0); PLATELET COUNT 158 x10e3/uL (140-360); RED BLOOD COUNT 3.54 x10e6/uL (4.3-5.7); RED CELL DISTRIBUTION WIDTH 13.2 % (11.7-14.4)
[2022-05-11 06:37] LABS: ALBUMIN 3.2 g/dL (3.5-5.0); ANION GAP 14.5 mmol/L (8-16); CALCIUM 8.4 mg/dL (8.4-10.2); CREATININE, SERUM 0.8 mg/dL (0.72-1.25); POTASSIUM 3.5 mmol/L (3.5-5.1)
[2022-05-11] MEDS: INSULIN REGULAR, HUMAN 100 UNIT/1 ML SQ SCH ×4 (07:30→21:00)
[2022-05-11] MEDS: ALBUTEROL/IPRATROPIUM 3 ML NEB NEB PRN ×2 (07:53→19:05)
[2022-05-11] MEDS: FINASTERIDE 5 MG TAB PO SCH (08:47)
[2022-05-11] MEDS: ASPIRIN 81 MG CHEW TAB PO SCH (08:47)
[2022-05-11] MEDS: ENOXAPARIN SOD INJ 40 MG/0.4 ML SYR SC SCH (08:47)
[2022-05-11] MEDS ORDERED: ONDANSETRON HCL 4 MG ORAL DISINTEGRATING TAB PO PRN (13:15)
[2022-05-11] MEDS: BENZONATATE 100 MG CAP PO PRN (18:24)
[2022-05-11] MEDS: ACETYLCYSTEINE 200 MG/ML 4ML VIAL INH SCH (19:05)
[2022-05-11] MEDS: SIMVASTATIN 20 MG TAB PO SCH (22:27)
[2022-05-11] MEDS: TAMSULOSIN HCL 0.4 MG CAP PO SCH (22:27)
[2022-05-12] VITALS (7 sets, daily range): BP systolic 126–177; BP diastolic 64–103
[2022-05-12] MEDS: ALBUTEROL/IPRATROPIUM 3 ML NEB NEB PRN (06:41)
[2022-05-12] MEDS: ACETYLCYSTEINE 200 MG/ML 4ML VIAL INH SCH ×2 (06:41→19:30)
[2022-05-12 06:44] LABS: BASOPHILS % 0.3 % (0.0-1.0); HEMATOCRIT 42.5 % (38.2-49.6); HEMOGLOBIN 13.3 g/dL (14.0-18.0); LYMPHOCYTES # (AUTO) 0.5 (1.0-3.2); LYMPHOCYTES % 8.3 % (18.0-39.1); MEAN CORPUSCULAR HEMOGLOBIN 33.4 pg (28-32); MEAN CORPUSCULAR HGB CONC 31.3 g/dL (31-35); MEAN CORPUSCULAR VOLUME 106.8 fL (81-99); MONOCYTES # (AUTO) 0.3 (0.2-0.8); MONOCYTES % 5.4 % (4.4-11.3); NEUTROPHILS % 84.3 % (38.7-80.0); PLATELET COUNT 127 x10e3/uL (140-360); RED BLOOD COUNT 3.98 x10e6/uL (4.3-5.7); RED CELL DISTRIBUTION WIDTH 13.2 % (11.7-14.4)
[2022-05-12 07:07] LABS: ALBUMIN 2.9 g/dL (3.5-5.0); ALBUMIN/GLOBULIN RATIO 0.8 (0.8-2.0); ANION GAP 18.2 mmol/L (8-16); CALCIUM 8.2 mg/dL (8.4-10.2); CREATININE, SERUM 0.77 mg/dL (0.72-1.25); POTASSIUM 4.2 mmol/L (3.5-5.1)
[2022-05-12] MEDS: INSULIN REGULAR, HUMAN 100 UNIT/1 ML SQ SCH ×4 (07:30→23:17)
[2022-05-12] MEDS ORDERED: SODIUM CHLORIDE 0.9% 250ML 250 ML ONE (08:33)
[2022-05-12] MEDS: ASPIRIN 81 MG CHEW TAB PO SCH (08:49)
[2022-05-12] MEDS: FINASTERIDE 5 MG TAB PO SCH (08:50)
[2022-05-12] MEDS: ENOXAPARIN SOD INJ 40 MG/0.4 ML SYR SC SCH (08:50)
[2022-05-12] MEDS ORDERED: METHYLPREDNISOLONE SOD SUCC 125 MG/2ML VIAL IV ONE (14:00)
[2022-05-12] MEDS: ALBUTEROL/IPRATROPIUM 3 ML NEB NEB SCH (19:30)
[2022-05-12] MEDS ORDERED: ALPRAZOLAM 0.25 MG TAB PO PRN (20:30)
[2022-05-12] MEDS ORDERED: CLONIDINE HCL 0.1 MG TAB PO PRN (21:00)
[2022-05-12] MEDS: BENZONATATE 100 MG CAP PO PRN (22:53)
[2022-05-12] MEDS: TAMSULOSIN HCL 0.4 MG CAP PO SCH (22:53)
[2022-05-12] MEDS: SIMVASTATIN 20 MG TAB PO SCH (22:53)
[2022-05-13] VITALS (7 sets, daily range): BP systolic 125–145; BP diastolic 62–83
[2022-05-13] MEDS: ALBUTEROL/IPRATROPIUM 3 ML NEB NEB SCH ×4 (00:40→19:35)
[2022-05-13 06:23] LABS: BASOPHILS % 0.2 % (0.0-1.0); HEMATOCRIT 45.6 % (38.2-49.6); HEMOGLOBIN 13.7 g/dL (14.0-18.0); LYMPHOCYTES # (AUTO) 0.5 (1.0-3.2); LYMPHOCYTES % 11.6 % (18.0-39.1); MEAN CORPUSCULAR HEMOGLOBIN 33.4 pg (28-32); MEAN CORPUSCULAR VOLUME 111.2 fL (81-99); MONOCYTES # (AUTO) 0.3 (0.2-0.8); MONOCYTES % 6.5 % (4.4-11.3); NEUTROPHILS # (AUTO) 3.3 (2.1-6.9); NEUTROPHILS % 80.2 % (38.7-80.0); PLATELET COUNT 132 x10e3/uL (140-360)
[2022-05-13 06:26] LABS: ALBUMIN 2.7 g/dL (3.5-5.0); ALBUMIN/GLOBULIN RATIO 0.7 (0.8-2.0); ANION GAP 16.1 mmol/L (8-16); CALCIUM 8.6 mg/dL (8.4-10.2); CREATININE, SERUM 0.76 mg/dL (0.72-1.25); POTASSIUM 4.1 mmol/L (3.5-5.1)
[2022-05-13] MEDS: ACETYLCYSTEINE 200 MG/ML 4ML VIAL INH SCH ×2 (06:40→19:35)
[2022-05-13] MEDS: INSULIN REGULAR, HUMAN 100 UNIT/1 ML SQ SCH ×3 (07:30→16:30)
[2022-05-13] MEDS: BENZONATATE 100 MG CAP PO PRN (07:39)
[2022-05-13 08:50] LABS: PLATELET ESTIMATE SLIGHTLY DECREASED; PLATELET MORPHOLOGY COMMENT NORMAL; RBC MORPHOLOGY COMMENT NORMAL
[2022-05-13] MEDS: FINASTERIDE 5 MG TAB PO SCH (09:37)
[2022-05-13] MEDS: CLOPIDOGREL BISULFATE 75 MG TAB PO SCH (09:39)
[2022-05-13] MEDS: METOPROLOL SUCCINATE 25 MG TAB XL PO SCH (09:39)
[2022-05-13] MEDS: ASPIRIN 81 MG CHEW TAB PO SCH (09:39)
[2022-05-13] MEDS ORDERED: METHYLPREDNISOLONE SOD SUCC 125 MG/2ML VIAL IV ONE (10:30)
[2022-05-13] MEDS: FUROSEMIDE INJ 10 MG/ML 4 ML VIAL IV SCH (13:25)
[2022-05-13] MEDS: TAMSULOSIN HCL 0.4 MG CAP PO SCH (23:52)
[2022-05-13] MEDS: SIMVASTATIN 20 MG TAB PO SCH (23:58)
[2022-05-14] MEDS: INSULIN REGULAR, HUMAN 100 UNIT/1 ML SQ SCH ×5 (00:16→21:37)
[2022-05-14] MEDS: ALBUTEROL/IPRATROPIUM 3 ML NEB NEB SCH ×4 (02:35→19:00)
[2022-05-14 05:34] VITALS: BP 151/78
[2022-05-14 05:58] LABS: BASOPHILS % 0.2 % (0.0-1.0); HEMATOCRIT 42.4 % (38.2-49.6); HEMOGLOBIN 12.4 g/dL (14.0-18.0); LYMPHOCYTES # (AUTO) 0.6 (1.0-3.2); LYMPHOCYTES % 11.9 % (18.0-39.1); MEAN CORPUSCULAR HEMOGLOBIN 33.5 pg (28-32); MEAN CORPUSCULAR HGB CONC 29.2 g/dL (31-35); MEAN CORPUSCULAR VOLUME 114.6 fL (81-99); MONOCYTES # (AUTO) 0.4 (0.2-0.8); MONOCYTES % 8.5 % (4.4-11.3); NEUTROPHILS # (AUTO) 3.8 (2.1-6.9); NEUTROPHILS % 78.8 % (38.7-80.0); PLATELET COUNT 123 x10e3/uL (140-360); RED CELL DISTRIBUTION WIDTH 12.1 % (11.7-14.4)
[2022-05-14 06:27] LABS: ALBUMIN 2.6 g/dL (3.5-5.0); ALBUMIN/GLOBULIN RATIO 0.8 (0.8-2.0); ANION GAP 14.6 mmol/L (8-16); CALCIUM 8.6 mg/dL (8.4-10.2); CREATININE, SERUM 0.8 mg/dL (0.72-1.25); POTASSIUM 4.6 mmol/L (3.5-5.1)
[2022-05-14] MEDS: ACETYLCYSTEINE 200 MG/ML 4ML VIAL INH SCH ×2 (06:33→19:00)
[2022-05-14 07:03] LABS: PLATELET ESTIMATE ADEQUATE; PLATELET MORPHOLOGY COMMENT FEW LARGE; RBC MORPHOLOGY COMMENT ABNORMAL
[2022-05-14] MEDS ORDERED: SODIUM CHLORIDE 0.9% 250ML 250 ML ONE ×2 (08:11→21:53)
[2022-05-14 08:31] VITALS: BP 131/66
[2022-05-14] MEDS: FINASTERIDE 5 MG TAB PO SCH (08:46)
[2022-05-14] MEDS: ASPIRIN 81 MG CHEW TAB PO SCH (08:46)
[2022-05-14] MEDS: CLOPIDOGREL BISULFATE 75 MG TAB PO SCH (08:46)
[2022-05-14] MEDS: METOPROLOL SUCCINATE 25 MG TAB XL PO SCH (08:47)
[2022-05-14] MEDS: FUROSEMIDE INJ 10 MG/ML 4 ML VIAL IV SCH (08:48)
[2022-05-14 09:01] VITALS: BP 131/66
[2022-05-14] MEDS ORDERED: FAMOTIDINE20 MG PO (09:53)
[2022-05-14] MEDS ORDERED: OMEGA-31000 MG PO (09:53)
[2022-05-14] MEDS ORDERED: LEVOCETIRIZINE D5 MG PO (09:53)
[2022-05-14] MEDS ORDERED: DONEPEZIL HCL10 MG PO (09:53)
[2022-05-14] MEDS ORDERED: FLUTICASONE PRO16 GM INH (09:53)
[2022-05-14] MEDS ORDERED: SERTRALINE HCL100 MG PO (09:53)
[2022-05-14] MEDS ORDERED: AZELASTINE137 MCG/0. INH (09:53)
[2022-05-14] MEDS ORDERED: OMEPRAZOLE40 MG PO (09:53)
[2022-05-14] MEDS ORDERED: MUPIROCIN22 GM TOP (09:53)
[2022-05-14] MEDS ORDERED: FLOMAX0.4 MG PO (09:53)
[2022-05-14 12:01] VITALS: BP 136/72
[2022-05-14 16:07] VITALS: BP 128/65
[2022-05-14 21:24] VITALS: BP 143/61
[2022-05-14] MEDS: TAMSULOSIN HCL 0.4 MG CAP PO SCH (21:32)
[2022-05-14] MEDS: SIMVASTATIN 20 MG TAB PO SCH (21:32)
[2022-05-15] VITALS (7 sets, daily range): BP systolic 108–157; BP diastolic 64–84
[2022-05-15] MEDS: ALBUTEROL/IPRATROPIUM 3 ML NEB NEB SCH ×4 (01:15→20:04)
[2022-05-15 05:43] LABS: BASOPHILS % 0.2 % (0.0-1.0); EOSINOPHILS # (AUTO) 0.1 (0.0-0.4); EOSINOPHILS % 1.1 % (0.0-6.0); HEMATOCRIT 40.1 % (38.2-49.6); HEMOGLOBIN 11.9 g/dL (14.0-18.0); LYMPHOCYTES # (AUTO) 1.4 (1.0-3.2); LYMPHOCYTES % 24.3 % (18.0-39.1); MEAN CORPUSCULAR HEMOGLOBIN 32.6 pg (28-32); MEAN CORPUSCULAR HGB CONC 29.7 g/dL (31-35); MEAN CORPUSCULAR VOLUME 109.9 fL (81-99); MONOCYTES # (AUTO) 0.6 (0.2-0.8); MONOCYTES % 10.1 % (4.4-11.3); NEUTROPHILS # (AUTO) 3.5 (2.1-6.9); NEUTROPHILS % 63.4 % (38.7-80.0); PLATELET COUNT 168 x10e3/uL (140-360); RED BLOOD COUNT 3.65 x10e6/uL (4.3-5.7); RED CELL DISTRIBUTION WIDTH 11.9 % (11.7-14.4)
[2022-05-15 06:16] LABS: CALCIUM 8.4 mg/dL (8.4-10.2); CREATININE, SERUM 0.79 mg/dL (0.72-1.25); MAGNESIUM 1.8 MG/DL (1.3-2.1)
[2022-05-15] MEDS: ACETYLCYSTEINE 200 MG/ML 4ML VIAL INH SCH ×2 (06:24→20:00)
[2022-05-15 07:09] LABS: HYPOCHROMASIA SLIGHT; LYMPHOCYTES % (MANUAL) 29 % (19-48); MONOCYTES % (MANUAL) 10 % (3.4-9.0); NEUTROPHILS % (MANUAL) 60 % (40-74); PLATELET ESTIMATE ADEQUATE; PLATELET MORPHOLOGY COMMENT NORMAL; RBC MORPHOLOGY COMMENT ABNORMAL
[2022-05-15] MEDS ORDERED: POTASSIUM CHLORIDE 20 MEQ TAB CR PO ONE ×2 (08:30→11:00)
[2022-05-15] MEDS: CLOPIDOGREL BISULFATE 75 MG TAB PO SCH (08:47)
[2022-05-15] MEDS: FUROSEMIDE INJ 10 MG/ML 4 ML VIAL IV SCH (08:47)
[2022-05-15] MEDS: ASPIRIN 81 MG CHEW TAB PO SCH (08:47)
[2022-05-15] MEDS: FINASTERIDE 5 MG TAB PO SCH (08:47)
[2022-05-15] MEDS: METOPROLOL SUCCINATE 25 MG TAB XL PO SCH (08:48)
[2022-05-15] MEDS: INSULIN REGULAR, HUMAN 100 UNIT/1 ML SQ SCH ×4 (08:51→21:51)
[2022-05-15] MEDS ORDERED: ACETAZOLAMIDE SODIUM 500 MG/VIAL IV ONE (11:00)
[2022-05-15] MEDS: TAMSULOSIN HCL 0.4 MG CAP PO SCH (21:38)
[2022-05-15] MEDS: SIMVASTATIN 20 MG TAB PO SCH (21:39)
[2022-05-16] VITALS (8 sets, daily range): BP systolic 112–160; BP diastolic 57–82
[2022-05-16] MEDS: ALBUTEROL/IPRATROPIUM 3 ML NEB NEB SCH ×4 (01:30→20:15)
[2022-05-16 05:48] LABS: BASOPHILS % 0.2 % (0.0-1.0); EOSINOPHILS # (AUTO) 0.1 (0.0-0.4); EOSINOPHILS % 2.6 % (0.0-6.0); HEMATOCRIT 40.1 % (38.2-49.6); HEMOGLOBIN 12.6 g/dL (14.0-18.0); LYMPHOCYTES # (AUTO) 1.2 (1.0-3.2); LYMPHOCYTES % 23.7 % (18.0-39.1); MEAN CORPUSCULAR HEMOGLOBIN 33.1 pg (28-32); MEAN CORPUSCULAR HGB CONC 31.4 g/dL (31-35); MEAN CORPUSCULAR VOLUME 105.2 fL (81-99); MONOCYTES # (AUTO) 0.5 (0.2-0.8); NEUTROPHILS # (AUTO) 3.2 (2.1-6.9); NEUTROPHILS % 63.3 % (38.7-80.0); PLATELET COUNT 171 x10e3/uL (140-360); RED BLOOD COUNT 3.81 x10e6/uL (4.3-5.7); RED CELL DISTRIBUTION WIDTH 12.9 % (11.7-14.4)
[2022-05-16 06:21] LABS: ANION GAP 15.1 mmol/L (8-16); CALCIUM 8.5 mg/dL (8.4-10.2); CREATININE, SERUM 0.81 mg/dL (0.72-1.25); POTASSIUM 4.1 mmol/L (3.5-5.1)
[2022-05-16] MEDS: ACETYLCYSTEINE 200 MG/ML 4ML VIAL INH SCH ×2 (06:37→20:15)
[2022-05-16] MEDS: INSULIN REGULAR, HUMAN 100 UNIT/1 ML SQ SCH ×4 (07:30→20:46)
[2022-05-16] MEDS: METOPROLOL SUCCINATE 25 MG TAB XL PO SCH (09:00)
[2022-05-16] MEDS: ENOXAPARIN SOD INJ 40 MG/0.4 ML SYR SC SCH (09:17)
[2022-05-16] MEDS: ASPIRIN 81 MG CHEW TAB PO SCH (09:17)
[2022-05-16] MEDS: AZITHROMYCIN 250 MG TAB PO SCH (09:17)
[2022-05-16] MEDS: FUROSEMIDE INJ 10 MG/ML 4 ML VIAL IV SCH (09:17)
[2022-05-16] MEDS: CLOPIDOGREL BISULFATE 75 MG TAB PO SCH (09:17)
[2022-05-16] MEDS: FINASTERIDE 5 MG TAB PO SCH (09:17)
[2022-05-16] MEDS: NYSTATIN 15 GM POWDER UD BTL TOP SCH (09:19)
[2022-05-16] MEDS: TAMSULOSIN HCL 0.4 MG CAP PO SCH (20:47)
[2022-05-16] MEDS: SIMVASTATIN 20 MG TAB PO SCH (20:47)
[2022-05-16] MEDS ORDERED: ACETAMINOPHEN/CODEINE 300MG - 30MG TAB PO PRN (23:15)
[2022-05-17] VITALS (8 sets, daily range): BP systolic 107–148; BP diastolic 62–79
[2022-05-17] MEDS: ALBUTEROL/IPRATROPIUM 3 ML NEB NEB SCH ×6 (02:20→19:40)
[2022-05-17] MEDS: BENZONATATE 100 MG CAP PO PRN (04:43)
[2022-05-17] MEDS: ACETYLCYSTEINE 200 MG/ML 4ML VIAL INH SCH ×3 (07:00→19:40)
[2022-05-17] MEDS: INSULIN REGULAR, HUMAN 100 UNIT/1 ML SQ SCH ×4 (08:01→19:50)
[2022-05-17] MEDS: ASPIRIN 81 MG CHEW TAB PO SCH (08:52)
[2022-05-17] MEDS: FUROSEMIDE INJ 10 MG/ML 4 ML VIAL IV SCH (08:52)
[2022-05-17] MEDS: FINASTERIDE 5 MG TAB PO SCH (08:53)
[2022-05-17] MEDS: METOPROLOL SUCCINATE 25 MG TAB XL PO SCH (08:53)
[2022-05-17] MEDS: CLOPIDOGREL BISULFATE 75 MG TAB PO SCH (08:53)
[2022-05-17] MEDS: NYSTATIN 15 GM POWDER UD BTL TOP SCH ×3 (08:54→21:04)
[2022-05-17] MEDS: ENOXAPARIN SOD INJ 40 MG/0.4 ML SYR SC SCH (08:54)
[2022-05-17] MEDS: AZITHROMYCIN 250 MG TAB PO SCH (08:54)
[2022-05-17] MEDS ORDERED: ALPRAZOLAM 0.25 MG TAB PO PRN (15:30)
[2022-05-17] MEDS ORDERED: GUAIFENESIN 600 MG TAB PO PRN (15:30)
[2022-05-17] MEDS ORDERED: HYDROXYZINE HCL 10 MG TAB PO PRN (15:30)
[2022-05-17] MEDS: TAMSULOSIN HCL 0.4 MG CAP PO SCH (21:04)
[2022-05-17] MEDS: SIMVASTATIN 20 MG TAB PO SCH (21:04)
[2022-05-18] VITALS (8 sets, daily range): BP systolic 119–153; BP diastolic 55–95
[2022-05-18 06:04] LABS: BASOPHILS % 0.3 % (0.0-1.0); EOSINOPHILS # (AUTO) 0.3 (0.0-0.4); EOSINOPHILS % 5.2 % (0.0-6.0); HEMATOCRIT 40.2 % (38.2-49.6); HEMOGLOBIN 13.1 g/dL (14.0-18.0); LYMPHOCYTES # (AUTO) 1.7 (1.0-3.2); LYMPHOCYTES % 25.9 % (18.0-39.1); MEAN CORPUSCULAR HEMOGLOBIN 33.2 pg (28-32); MEAN CORPUSCULAR HGB CONC 32.6 g/dL (31-35); MEAN CORPUSCULAR VOLUME 101.8 fL (81-99); MONOCYTES # (AUTO) 0.5 (0.2-0.8); MONOCYTES % 8.2 % (4.4-11.3); NEUTROPHILS # (AUTO) 3.9 (2.1-6.9); NEUTROPHILS % 59.8 % (38.7-80.0); PLATELET COUNT 210 x10e3/uL (140-360); RED BLOOD COUNT 3.95 x10e6/uL (4.3-5.7); RED CELL DISTRIBUTION WIDTH 12.4 % (11.7-14.4)
[2022-05-18 06:35] LABS: ALBUMIN 2.8 g/dL (3.5-5.0); ALBUMIN/GLOBULIN RATIO 0.8 (0.8-2.0); ANION GAP 16.6 mmol/L (8-16); CALCIUM 8.7 mg/dL (8.4-10.2); CREATININE, SERUM 0.84 mg/dL (0.72-1.25); POTASSIUM 3.6 mmol/L (3.5-5.1)
[2022-05-18] MEDS: ALBUTEROL/IPRATROPIUM 3 ML NEB NEB SCH ×5 (06:40→23:15)
[2022-05-18] MEDS: ACETYLCYSTEINE 200 MG/ML 4ML VIAL INH SCH ×2 (06:45→19:35)
[2022-05-18] MEDS: INSULIN REGULAR, HUMAN 100 UNIT/1 ML SQ SCH ×4 (07:30→22:48)
[2022-05-18] MEDS: FINASTERIDE 5 MG TAB PO SCH (09:42)
[2022-05-18] MEDS: CLOPIDOGREL BISULFATE 75 MG TAB PO SCH (09:42)
[2022-05-18] MEDS: ASPIRIN 81 MG CHEW TAB PO SCH (09:42)
[2022-05-18] MEDS: FUROSEMIDE INJ 10 MG/ML 4 ML VIAL IV SCH (09:42)
[2022-05-18] MEDS: AZITHROMYCIN 250 MG TAB PO SCH (09:43)
[2022-05-18] MEDS: ENOXAPARIN SOD INJ 40 MG/0.4 ML SYR SC SCH (09:43)
[2022-05-18] MEDS: METOPROLOL SUCCINATE 25 MG TAB XL PO SCH (09:43)
[2022-05-18] MEDS: NYSTATIN 15 GM POWDER UD BTL TOP SCH ×3 (09:51→21:00)
[2022-05-18] MEDS: SIMVASTATIN 20 MG TAB PO SCH (21:00)
[2022-05-18] MEDS: TAMSULOSIN HCL 0.4 MG CAP PO SCH (21:00)
[2022-05-19] VITALS: BP 150/81
[2022-05-19] MEDS ORDERED: ZIPRASIDONE 20 MG VIAL IM PRN (03:00)
[2022-05-19 04:00] VITALS: BP 152/78
[2022-05-19] MEDS: ALBUTEROL/IPRATROPIUM 3 ML NEB NEB SCH ×2 (06:00→10:15)
[2022-05-19] MEDS: ACETYLCYSTEINE 200 MG/ML 4ML VIAL INH SCH (06:19)
[2022-05-19 07:52] VITALS: BP 140/80
[2022-05-19 08:05] VITALS: BP 140/80
[2022-05-19] MEDS: INSULIN REGULAR, HUMAN 100 UNIT/1 ML SQ SCH (09:41)
[2022-05-19] MEDS: ENOXAPARIN SOD INJ 40 MG/0.4 ML SYR SC SCH (09:47)
[2022-05-19] MEDS: AZITHROMYCIN 250 MG TAB PO SCH (09:47)
[2022-05-19] MEDS: FUROSEMIDE INJ 10 MG/ML 4 ML VIAL IV SCH (09:47)
[2022-05-19] MEDS: CLOPIDOGREL BISULFATE 75 MG TAB PO SCH (09:47)
[2022-05-19] MEDS: FINASTERIDE 5 MG TAB PO SCH (09:47)
[2022-05-19] MEDS: ASPIRIN 81 MG CHEW TAB PO SCH (09:47)
[2022-05-19] MEDS: METOPROLOL SUCCINATE 25 MG TAB XL PO SCH (09:48)
[2022-05-19] MEDS: NYSTATIN 15 GM POWDER UD BTL TOP SCH (09:48)
[2022-05-19] MEDS ORDERED: LEVOFLOXACIN250 MG PO (10:34)
[2022-05-19] MEDS ORDERED: LASIX20 MG PO (10:34)
[2022-05-19] MEDS ORDERED: NYAMYC15 GM TOP (10:34)
[2022-05-19 12:19] VITALS: BP 143/68
== END 2022-05-19 13:50 | disposition home or self-care (01) | DRG 190 ==
LOC: ER 07:10 → ERHOLD 10:17 → MED/SURG3 11:16
PROVIDERS: ADMIT Internal Medicine; ATTEND Internal Medicine
DX: J44.0 Chronic obstructive pulmonary disease with (acute) lower respiratory infection (principal); J18.9 Pneumonia, unspecified organism; I50.32 Chronic diastolic (congestive) heart failure; J44.1 Chronic obstructive pulmonary disease with (acute) exacerbation; N40.1 Benign prostatic hyperplasia with lower urinary tract symptoms; R33.8 Other retention of urine; I25.10 Atherosclerotic heart disease of native coronary artery without angina pectoris; Z95.5 Presence of coronary angioplasty implant and graft; I11.0 Hypertensive heart disease with heart failure; Z20.822 Contact with and (suspected) exposure to COVID-19; R21 Rash and other nonspecific skin eruption; E11.65 Type 2 diabetes mellitus with hyperglycemia
CPT/HCPCS: 36415; 71045; 71250; 74230; 80048; 80053; 81001; 82550; 82553; 82948; 83036; 83605; 83735; 83880; 84484; 85025; 85610; 85730; 87040; 87086; 93005; 93306; 94640; 94760; 94799; 96372; 99252; 99284; J0456; J0696; J1650; J1817; J1940; J2543; J2930; J7030; J7050

== ENCOUNTER 2022-10-18 02:17 | Emergency (ER) | payer MEDICARE ==
[~2022-10-18] VITALS: Ht 177.8 cm; Wt 94.8 kg
[~2022-10-18 02:17] MED LIST changes: +AZELASTINE137 MCG/0. INH; +DONEPEZIL HCL10 MG PO; +FAMOTIDINE20 MG PO; +FLUTICASONE PRO16 GM INH; +LASIX20 MG PO; +LEVOCETIRIZINE D5 MG PO; +LEVOFLOXACIN250 MG PO; +MUPIROCIN22 GM TOP; +NYAMYC15 GM TOP; +OMEGA-31000 MG PO; +OMEPRAZOLE40 MG PO; +SERTRALINE HCL100 MG PO
[2022-10-18 03:30] LABS: BASOPHILS % 0.3 % (0.0-1.0); EOSINOPHILS # (AUTO) 0.1 (0.0-0.4); HEMATOCRIT 38.5 % (38.2-49.6); HEMOGLOBIN 12.9 g/dL (14.0-18.0); LYMPHOCYTES # (AUTO) 1.4 (1.0-3.2); LYMPHOCYTES % 21.4 % (18.0-39.1); MEAN CORPUSCULAR HEMOGLOBIN 33.9 pg (28-32); MEAN CORPUSCULAR HGB CONC 33.5 g/dL (31-35); MEAN CORPUSCULAR VOLUME 101.3 fL (81-99); MONOCYTES # (AUTO) 0.6 (0.2-0.8); MONOCYTES % 9.1 % (4.4-11.3); NEUTROPHILS # (AUTO) 4.5 (2.1-6.9); NEUTROPHILS % 67.8 % (38.7-80.0); PLATELET COUNT 174 x10e3/uL (140-360); RED CELL DISTRIBUTION WIDTH 13.8 % (11.7-14.4)
[2022-10-18 03:40] LABS: CLARITY,URINE CLEAR (CLEAR); COLOR,URINE YELLOW (YELLOW); LEUKOCYTE ESTERASE ,URINE NEGATIVE (NEGATIVE); NITRITE,URINE NEGATIVE (NEGATIVE)
[2022-10-18 03:41] LABS: KETONES,URINE NEGATIVE (NEGATIVE); PROTEIN,URINE DIPSTICK 1+ (NEGATIVE); URINE UROBILINOGEN 0.2 mg/dL (0.2 - 1)
[2022-10-18 03:46] LABS: ALBUMIN 3.8 g/dL (3.5-5.0); ALBUMIN/GLOBULIN RATIO 1.2 (0.8-2.0); ANION GAP 12.9 mmol/L (8-16); CREATININE, SERUM 1.15 mg/dL (0.72-1.25)
[2022-10-18 03:48] LABS: POTASSIUM 2.9 mmol/L (3.5-5.1)
[2022-10-18] MEDS ORDERED: POTASSIUM CHLORIDE 20 MEQ TAB CR PO STA (03:51)
[2022-10-18 03:54] LABS: BACTERIA,URINE FEW /HPF; EPITHELIAL CELLS,URINE FEW /LPF; MUCUS,URINE MANY (RARE)
[2022-10-18] MEDS ORDERED: CEFDINIR300 MG PO (05:24)
[2022-10-18 05:32] VITALS: BP 139/78; PULSE 62; RESP 18; TEMP 98.3; O2SAT 98
== END 2022-10-18 05:33 | disposition home or self-care (01) ==
LOC: ER 02:20
DX: R41.0 Disorientation, unspecified (principal); F03.90 Unspecified dementia, unspecified severity, without behavioral disturbance, psychotic disturbance, mood disturbance, and anxiety; N39.0 Urinary tract infection, site not specified; E11.65 Type 2 diabetes mellitus with hyperglycemia; I10 Essential (primary) hypertension; E78.5 Hyperlipidemia, unspecified; J44.9 Chronic obstructive pulmonary disease, unspecified; R94.31 Abnormal electrocardiogram [ECG] [EKG]; I25.2 Old myocardial infarction; Z95.5 Presence of coronary angioplasty implant and graft; Z86.73 Personal history of transient ischemic attack (TIA), and cerebral infarction without residual deficits
CPT/HCPCS: 36415; 71045; 80053; 81001; 85025; 87086; 93005; 99284; J0696